=== PATIENT | male | born 1970 | race African-American/Black ===

== ENCOUNTER 2017-09-18 15:18 | Emergency (ER) | payer BC, OTHER | END 2017-09-18 16:45 | disposition home or self-care (01) | LOC: ER 15:18 | DX: M62.838 Other muscle spasm (principal); E78.00 Pure hypercholesterolemia, unspecified; F12.10 Cannabis abuse, uncomplicated | CPT/HCPCS: 99283 ==

== ENCOUNTER 2018-03-22 20:42 | Inpatient (IN) | payer BC ==
[2018-03-22 23:27] LABS: BILIRUBIN,URINE NEGATIVE (NEG); CLARITY,URINE CLEAR; COLOR,URINE YELLOW; GLUCOSE,URINE NEGATIVE (NEG); NITRITE,URINE NEGATIVE (NEG); PH,URINE 6.5; PROTEIN,URINE NEGATIVE (NEG-TRACE); UROBILINOGEN,URINE 0.2 mg/dL (0.2 mg/dL)
[2018-03-22 23:32] LABS: AMPHETAMINE/METHAMPHETAMINE NEG (NEG); BARBITURATES NEG (NEG); BENZODIAZEPINES NEG (NEG); CANNABINOIDS POS (NEG); COCAINE NEG (NEG); ETHANOL, URINE NEG (NEG); METHADONE NEG (NEG); OPIATES NEG (NEG); PHENCYCLIDINE NEG (NEG)
[2018-03-22 23:39] LABS: BACTERIA,URINE 0 /HPF (0-FEW); RBC,URINE OCC /HPF (0-2); SQUAMOUS EPITHELIAL CELL,UR OCC /LPF; WBC,URINE OCC /HPF (0-4)
[2018-03-22] MEDS: ONDANSETRON PF 4 MG/2 ML VIAL. IV (23:48)
[2018-03-22] MEDS: PANTOPRAZOLE IV PUSH 40 MG VIAL. IVP (23:49)
[2018-03-22] MEDS: IV NORMAL SALINE 1000ML BAG 1,000 ML IV (23:50)
[2018-03-23 00:03] LABS: ADD MAN DIFF? NO
[2018-03-23 00:05] LABS: BASO % 0 % (0-3); EOS % 0 % (0-3); HEMATOCRIT 40.6 % (39.0-53.0); HEMOGLOBIN 13.8 g/dL (13.0-17.5); LYMPH # 2.4 x10^3/uL (1.0-4.8); LYMPH % 21 % (24-48); MEAN CORPUSCULAR HEMOGLOBIN 30 pg (25-35); MEAN CORPUSCULAR HGB CONC 34 g/dL (31-37); MEAN CORPUSCULAR VOLUME 87 fL (79-100); MONO # 0.8 x10^3/uL (0.0-1.1); MONO % 7 % (0-9); NEUT % 71 % (31-73); PLATELET COUNT 234 x10^3/uL (140-400); RED BLOOD COUNT 4.67 x10^6/uL (4.30-5.70); RED CELL DISTRIBUTION WIDTH 14.3 % (11.5-14.5); WHITE BLOOD COUNT 11.1 x10^3/uL (4.0-11.0)
[2018-03-23] MEDS: ACETAMINOPHEN 500 MG TABLET PO (00:11)
[2018-03-23 00:18] LABS: ANION GAP 13 (6-14); BLOOD UREA NITROGEN 7 mg/dL (8-26); BUN/CREATININE RATIO 6 (6-20); CALCIUM 9.3 mg/dL (8.5-10.1); CARBON DIOXIDE 24 mmol/L (21-32); CHLORIDE 104 mmol/L (98-107); CREATININE 1.2 mg/dL (0.7-1.3); GFR 78.5; GLUCOSE 99 mg/dL (70-99); SODIUM 141 mmol/L (136-145)
[2018-03-23 00:20] LABS: ETHANOL < 10 mg/dL (0-10)
[2018-03-23 00:24] LABS: ALBUMIN/GLOBULIN RATIO 1.1 (1.0-1.7); ALK PHOS 53 U/L (46-116); ALT (SGPT) 18 U/L (16-63); AST (SGOT) 14 U/L (15-37); MAGNESIUM 1.6 mg/dL (1.8-2.4); TOTAL BILIRUBIN 0.4 mg/dL (0.2-1.0); TOTAL PROTEIN 7.7 g/dL (6.4-8.2)
[2018-03-23 00:27] LABS: TROPONINI < 0.017 ng/mL (0.000-0.055)
[2018-03-23 00:30] LABS: THYROID STIM HORMONE (TSH) 3.329 uIU/mL (0.358-3.74)
[2018-03-23 00:33] LABS: NT-PRO BNP 20 pg/mL (0-124)
[2018-03-23 00:33] LABS: CKMB INDEX 0.2 % (0-4); CKMB MASS 0.6 ng/mL (0.0-3.6); CREATINE KINASE 293 U/L (39-308)
[2018-03-23] MEDS ORDERED: DEXTROSE 50% 25 GM / 50ML DISP.SYRIN. IV ×2 (01:00→09:00)
[2018-03-23] MEDS ORDERED: MORPHINE SULFATE 4 MG/ML DISP.SYRIN. IV (01:00)
[2018-03-23] MEDS: IV NORMAL SALINE 1000ML BAG 1,000 ML IV (01:00)
[2018-03-23] MEDS ORDERED: ACETAMINOPHEN 325 MG TABLET. PO (01:00)
[2018-03-23 07:40] LABS: POC GLUCOSE 93 mg/dL (70-99)
[2018-03-23] MEDS ORDERED: NICOTINE 7MG PATCH. TD (09:15)
[2018-03-23] MEDS: PANTOPRAZOLE IV PUSH 40 MG VIAL. IVP (10:10)
[2018-03-23] MEDS: MAGNESIUM SULFATE 2GM 50 ML IV (10:11)
[2018-03-23] MEDS: INSULIN LISPRO 300 UNITS/3 ML INSULN.PEN. SQ ×2 (12:00→17:00)
[2018-03-23 12:03] LABS: POC GLUCOSE 94 mg/dL (70-99)
[2018-03-23] MEDS ORDERED: CONTRAST GIVEN. MC (13:30)
[2018-03-23] MEDS: IOHEXOL 300 MG/ML 100ML VIAL. IV (14:59)
[2018-03-23] MEDS: IOHEXOL 240 MG/ML 50ML VIAL. PO (14:59)
[2018-03-23 16:01] LABS: POC GLUCOSE 95 mg/dL (70-99)
[2018-03-23] MEDS: MAGNESIUM CITRATE 296 ML SOLUTION. PO (16:01)
[2018-03-23] MEDS: BISACODYL 5 MG TABLET.DR. PO (16:02)
[2018-03-23] MEDS: POLYETHYLENE GLYCOL 3350 238 GM POWDER PO (16:54)
[2018-03-23] MEDS: ONDANSETRON PF 4 MG/2 ML VIAL. IV (18:03)
[2018-03-23 21:26] LABS: POC GLUCOSE 118 mg/dL (70-99)
[2018-03-24 03:53] LABS: POC GLUCOSE 84 mg/dL (70-99)
[2018-03-24 04:33] LABS: ADD MAN DIFF? NO
[2018-03-24 04:38] LABS: BASO % 0 % (0-3); EOS # 0.1 x10^3/uL (0.0-0.7); EOS % 1 % (0-3); HEMATOCRIT 42.1 % (39.0-53.0); HEMOGLOBIN 14.3 g/dL (13.0-17.5); LYMPH # 3.3 x10^3/uL (1.0-4.8); LYMPH % 31 % (24-48); MEAN CORPUSCULAR HEMOGLOBIN 30 pg (25-35); MEAN CORPUSCULAR HGB CONC 34 g/dL (31-37); MEAN CORPUSCULAR VOLUME 88 fL (79-100); MONO % 10 % (0-9); NEUT # 6.2 x10^3uL (1.8-7.7); NEUT % 58 % (31-73); PLATELET COUNT 240 x10^3/uL (140-400); RED BLOOD COUNT 4.77 x10^6/uL (4.30-5.70); RED CELL DISTRIBUTION WIDTH 14.4 % (11.5-14.5); WHITE BLOOD COUNT 10.6 x10^3/uL (4.0-11.0)
[2018-03-24] MEDS: LORazepam 0.5 MG TABLET PO (04:39)
[2018-03-24 05:09] LABS: ALK PHOS 55 U/L (46-116); ALT (SGPT) 18 U/L (16-63); ANION GAP 11 (6-14); AST (SGOT) 15 U/L (15-37); BLOOD UREA NITROGEN 6 mg/dL (8-26); BUN/CREATININE RATIO 5 (6-20); CARBON DIOXIDE 25 mmol/L (21-32); CHLORIDE 104 mmol/L (98-107); CREATININE 1.2 mg/dL (0.7-1.3); GFR 78.5; GLUCOSE 93 mg/dL (70-99); POTASSIUM 3.5 mmol/L (3.5-5.1); SODIUM 140 mmol/L (136-145); TOTAL BILIRUBIN 0.5 mg/dL (0.2-1.0)
[2018-03-24] MEDS ORDERED: fentaNYL PF VIAL 100 MCG/2 ML VIAL IV ×6 (06:30→11:15)
[2018-03-24] MEDS ORDERED: MIDAZOLAM HCL/PF 2 MG/2 ML VIAL. IV ×2 (06:30→11:15)
[2018-03-24] MEDS ORDERED: LIDOCAINE 1% PF 2 ML VIAL. ID ×3 (06:30→11:15)
[2018-03-24] MEDS ORDERED: PROCHLORPERAZINE 10 MG/2 ML VIAL. IV (07:00)
[2018-03-24] MEDS: IV RINGERS,LACTATED 1000ML 1,000 ML IV ×4 (07:00→14:24)
[2018-03-24] MEDS ORDERED: MORPHINE SULFATE 2 MG/ML DISP.SYRIN. IV (07:00)
[2018-03-24] MEDS ORDERED: ONDANSETRON PF 4 MG/2 ML VIAL. IV (07:00)
[2018-03-24 07:29] LABS: POC GLUCOSE 107 mg/dL (70-99)
[2018-03-24 07:54] LABS: MAGNESIUM 1.9 mg/dL (1.8-2.4)
[2018-03-24] MEDS: INSULIN LISPRO 300 UNITS/3 ML INSULN.PEN. SQ ×2 (08:00→12:00)
[2018-03-24] MEDS ORDERED: PROPOFOL 60 ML IV (12:00)
[2018-03-24] MEDS ORDERED: LIDOCAINE 2% PF Vial for OR 5 ML VIAL. (12:00)
[2018-03-24] MEDS: EPINEPHrine SYRINGE 1 MG/10 ML SYRINGE IV (12:43)
[2018-03-24] MEDS ORDERED: EPINEPHrine SYRINGE 1 MG/10 ML SYRINGE (13:03)
[2018-03-24] MEDS: PANTOPRAZOLE IV PUSH 40 MG VIAL. IVP (15:01)
[2018-03-24] MEDS: POTASSIUM CHLORIDE 20 MEQ TABLET.ER. PO ×2 (15:04→15:30)
[2018-03-24 16:31] LABS: POC GLUCOSE 136 mg/dL (70-99)
== END 2018-03-24 17:00 | disposition home or self-care (01) | DRG 641 ==
LOC: 6 SOUTH 03-23 01:14 → ER 20:42 → 6 SOUTH 03-23 01:36
PROC: 0DB68ZX Excision of Stomach, Via Natural or Artificial Opening Endoscopic, Diagnostic (ICD-10-PCS; principal; 2018-03-24 12:00)
PROC: 0W3P8ZZ Control Bleeding in Gastrointestinal Tract, Via Natural or Artificial Opening Endoscopic (ICD-10-PCS; 2018-03-24 12:00)
PROC: 0DBM8ZZ Excision of Descending Colon, Via Natural or Artificial Opening Endoscopic (ICD-10-PCS; 2018-03-24 12:00)
PROC: 0DBM8ZX Excision of Descending Colon, Via Natural or Artificial Opening Endoscopic, Diagnostic (ICD-10-PCS; 2018-03-24 12:00)
DX: E16.2 Hypoglycemia, unspecified (principal); K62.5 Hemorrhage of anus and rectum; F41.9 Anxiety disorder, unspecified; F32.9 Major depressive disorder, single episode, unspecified; E78.00 Pure hypercholesterolemia, unspecified; F12.90 Cannabis use, unspecified, uncomplicated; G89.29 Other chronic pain; K64.9 Unspecified hemorrhoids; K29.70 Gastritis, unspecified, without bleeding; K60.2 Anal fissure, unspecified; F19.10 Other psychoactive substance abuse, uncomplicated; E78.5 Hyperlipidemia, unspecified; D12.4 Benign neoplasm of descending colon
CPT/HCPCS: 36415; 45380; 45385; 70450; 71045; 74177; 80053; 80307; 81001; 82553; 82962; 83735; 83880; 84443; 84484; 85025; 88305; 88342; 93005; 93306; 95816; 96361; 96374; 96375; 99285; 99285-25; C9113; G0480; J0171; J1815; J2001; J2405; J2704; J3475; J7030; J7120; Q9966; Q9967